=== PATIENT | male | born 1990 | race African-American/Black ===

== ENCOUNTER 2023-09-15 00:34 | Inpatient (IN) | payer OTHER ==
[2023-09-15] MEDS ORDERED: HYDROmorphone HCl 2 MG/ML VIAL IVPUSH ONE ×4 (01:14→07:00)
[2023-09-15] MEDS ORDERED: HYDROmorphone HCl 2 MG/ML VIAL ONE ×4 (01:21→15:10)
[2023-09-15 01:44] LABS: EOS % 0.7 % (0-4.5); HEMATOCRIT 20.5 % (35.4-49); HEMOGLOBIN 7.4 GM/dL (11.7-16.9); LYMPH % 22.5 % (8-40); MEAN CELL VOLUME 80.5 fl (80-96); MEAN PLT VOLUME 6.7 fl (7.5-11.1); MONO % 15.3 % (3.8-10.2); NEUT % 60.5 % (42.8-82.8); PLATELET COUNT 589 10^3/uL (134-434); RBC 2.54 M/mm3 (4.00-5.60); RETICULOCYTES 10.95 % (0.5-1.5); WHITE BLOOD COUNT 11.5 K/mm3 (4.0-10.0)
[2023-09-15] MEDS ORDERED: traMADol HCL 50 MG TABLET PO ONE ×2 (01:50→07:47)
[2023-09-15 01:56] LABS: INR 1.26 (0.83-1.09); PROTHROMBIN TIME (PATIENT) 14.6 SEC (9.7-13.0)
[2023-09-15 01:58] LABS: ACTIVATED PTT 30.4 SECONDS (25.2-36.5)
[2023-09-15 02:02] LABS: POTASSIUM 3.8 mmol/L (3.5-5.1)
[2023-09-15 02:04] LABS: BLOOD UREA NITROGEN 13.1 mg/dL (7-18); CALCIUM 8.9 mg/dL (8.5-10.1)
[2023-09-15 02:05] LABS: ALBUMIN 3.6 g/dl (3.4-5.0)
[2023-09-15 02:07] LABS: CREATININE 0.6 mg/dL (0.55-1.3)
[2023-09-15 02:09] LABS: BILIRUBIN,TOTAL 5.3 mg/dL (0.2-1)
[2023-09-15] MEDS ORDERED: traMADol HCL 50 MG TABLET ONE ×3 (02:17→08:38)
[2023-09-15 03:20] LABS: BILIRUBIN,DIRECT 0.4 mg/dL (0.0-0.2)
[2023-09-15] MEDS ORDERED: NALOXONE HCL 0.4 MG/ML VIAL IVPUSH PRN (03:31)
[2023-09-15] MEDS ORDERED: LACTATED RINGERS SOLUTION 1,000 ML/1,000 ML INFUS.BAG IV SCH (04:15)
[2023-09-15] MEDS ORDERED: traMADol HCL 50 MG TABLET PO SCH ×2 (05:00→10:00)
[2023-09-15 05:40] LABS: PH,URINE 6.5 (5.0-8.0); URINE APPEARANCE CLEAR; URINE BILIRUBIN NEGATIVE (NEGATIVE); URINE COLOR YELLOW; URINE GLUCOSE (UA) NEGATIVE (NEGATIVE); URINE KETONE NEGATIVE (NEGATIVE); URINE LEUK ESTERASE NEGATIVE (NEGATIVE); URINE NITRITE NEGATIVE (NEGATIVE); URINE PROTEIN NEGATIVE (NEGATIVE)
[2023-09-15 06:11] LABS: ANISOCYTOSIS 3+; MACROCYTOSIS 0; OVALOCYTE 1+; SICKELED CELLS 2+; TARGET CELLS 1+
[2023-09-15 06:17] LABS: HEMATOCRIT 21.1 % (35.4-49); HEMOGLOBIN 7.5 GM/dL (11.7-16.9); MCH 28.9 pg (25.7-33.7); MCHC 35.7 g/dl (32.0-35.9); PLATELET COUNT 565 10^3/uL (134-434); RBC 2.61 M/mm3 (4.00-5.60); RDW 27.1 % (11.9-15.9); WHITE BLOOD COUNT 11.2 K/mm3 (4.0-10.0)
[2023-09-15] MEDS ORDERED: SODIUM CHLORIDE 1,000 ML IV STA (06:49)
[2023-09-15] MEDS: SODIUM CHLORIDE 1,000 ML IV SCH (06:53)
[2023-09-15] MEDS ORDERED: HYDROmorphone HCl 2 MG/ML VIAL IVPUSH SCH (07:00)
[2023-09-15 07:27] LABS: POTASSIUM 3.6 mmol/L (3.5-5.1)
[2023-09-15 07:29] LABS: CALCIUM 8.8 mg/dL (8.5-10.1)
[2023-09-15 07:30] LABS: ALBUMIN 3.8 g/dl (3.4-5.0); BLOOD UREA NITROGEN 8.7 mg/dL (7-18)
[2023-09-15 07:33] LABS: CREATININE 0.6 mg/dL (0.55-1.3)
[2023-09-15 07:34] LABS: BILIRUBIN,TOTAL 4.8 mg/dL (0.2-1); TOT PROT 8.3 g/dl (6.4-8.2)
[2023-09-15] MEDS ORDERED: FAMOTIDINE 20 MG/50 ML IVPB 20 MG/50 ML MG IVPB ONE (07:35)
[2023-09-15 07:45] LABS: BASO % 0.7 % (0-2.0); EOS % 1.3 % (0-4.5); HEMATOCRIT 21.5 % (35.4-49); HEMOGLOBIN 7.7 GM/dL (11.7-16.9); LYMPH % 39.7 % (8-40); MCH 28.9 pg (25.7-33.7); MCHC 35.7 g/dl (32.0-35.9); MEAN CELL VOLUME 80.9 fl (80-96); MEAN PLT VOLUME 6.9 fl (7.5-11.1); MONO % 11.4 % (3.8-10.2); NEUT % 46.9 % (42.8-82.8); PLATELET COUNT 568 10^3/uL (134-434); RBC 2.66 M/mm3 (4.00-5.60); RDW 26.9 % (11.9-15.9); WHITE BLOOD COUNT 10.5 K/mm3 (4.0-10.0)
[2023-09-15 09:26] LABS: ANISOCYTOSIS 3+; MACROCYTOSIS 0; SICKELED CELLS 2+; TARGET CELLS 2+
[2023-09-15] MEDS: HYDROmorphone HCl 2 MG/ML VIAL IVPUSH PRN ×3 (09:44→21:00)
[2023-09-15] MEDS ORDERED: traMADol HCL 50 MG TABLET PO PRN (12:00)
[2023-09-15] MEDS ORDERED: DOCUSATE NA 100 MG/10 ML UNIT-DOSE CUPS PO PRN (17:01)
[2023-09-15] MEDS: LACTATED RINGERS SOLUTION 1,000 ML/1,000 ML INFUS.BAG IV SCH (20:58)
[2023-09-15] MEDS ORDERED: FLU VACCINE (FLULAVAL) PF 60 MCG/0.5 ML SYRINGE 2023-2024 IM ONE (22:00)
[2023-09-16] MEDS: traMADol HCL 50 MG TABLET PO SCH ×2 (00:09→09:36)
[2023-09-16] MEDS: HYDROmorphone HCl 2 MG/ML VIAL IVPUSH PRN ×4 (03:03→23:35)
[2023-09-16] MEDS: LACTATED RINGERS SOLUTION 1,000 ML/1,000 ML INFUS.BAG IV SCH ×2 (05:00→20:08)
[2023-09-16 07:13] LABS: HEMATOCRIT 20.9 % (35.4-49); HEMOGLOBIN 7.7 GM/dL (11.7-16.9); MCH 29.8 pg (25.7-33.7); MCHC 36.6 g/dl (32.0-35.9); MEAN CELL VOLUME 81.4 fl (80-96); MEAN PLT VOLUME 6.7 fl (7.5-11.1); PLATELET COUNT 531 10^3/uL (134-434); RBC 2.57 M/mm3 (4.00-5.60); RDW 28.2 % (11.9-15.9); WHITE BLOOD COUNT 11.6 K/mm3 (4.0-10.0)
[2023-09-16] MEDS: SODIUM CHLORIDE 1,000 ML IV SCH (07:28)
[2023-09-16 07:32] LABS: POTASSIUM 3.9 mmol/L (3.5-5.1)
[2023-09-16 07:34] LABS: CALCIUM 9.1 mg/dL (8.5-10.1); MAGNESIUM 1.8 mg/dL (1.8-2.4)
[2023-09-16 07:37] LABS: CREATININE 0.5 mg/dL (0.55-1.3); PHOSPHOROUS 3.8 mg/dL (2.5-4.9)
[2023-09-16 07:39] LABS: BILIRUBIN,TOTAL 3.8 mg/dL (0.2-1)
[2023-09-16] MEDS ORDERED: HYDROmorphone HCl 2 MG/ML VIAL IVPUSH PRN ×2 (08:13→09:07)
[2023-09-16 09:15] LABS: ANISOCYTOSIS 3+; MACROCYTOSIS 0; SICKELED CELLS 2+
[2023-09-16 16:01] LABS: METHADONE, UR NEGATIVE (NEGATIVE); PHENCYCLIDINE,URINE NEGATIVE (NEGATIVE); URINE BENZODIAZEPINES NEGATIVE (NEGATIVE)
[2023-09-16 16:29] LABS: COCAINE, UR NEGATIVE (NEGATIVE); OPIATES, URI POSITIVE (NEGATIVE); URINE AMPHETAMINES NEGATIVE (NEGATIVE); URINE BARBITURATES NEGATIVE (NEGATIVE)
[2023-09-16] MEDS: FOLIC ACID 1 MG TABLET (FP) PO SCH (20:13)
[2023-09-16] MEDS: HEPARIN NA (PORCINE) 5,000 UNITS/ML 1ML VIAL SQ SCH (22:13)
[2023-09-16] MEDS: MELATONIN 5 MG TABLETS PO SCH (23:36)
[2023-09-17] MEDS: HYDROmorphone HCl 2 MG/ML VIAL IVPUSH PRN ×3 (02:53→13:02)
[2023-09-17 07:11] LABS: HEMATOCRIT 19.7 % (35.4-49); HEMOGLOBIN 7.1 GM/dL (11.7-16.9); MCH 29.4 pg (25.7-33.7); MEAN CELL VOLUME 81.7 fl (80-96); MEAN PLT VOLUME 6.8 fl (7.5-11.1); PLATELET COUNT 467 10^3/uL (134-434); RBC 2.41 M/mm3 (4.00-5.60); RDW 27.2 % (11.9-15.9); WHITE BLOOD COUNT 9.7 K/mm3 (4.0-10.0)
[2023-09-17 07:31] LABS: POTASSIUM 3.9 mmol/L (3.5-5.1)
[2023-09-17 07:49] LABS: CALCIUM 9.3 mg/dL (8.5-10.1)
[2023-09-17 07:50] LABS: ALBUMIN 3.5 g/dl (3.4-5.0); BLOOD UREA NITROGEN 6.6 mg/dL (7-18)
[2023-09-17 07:53] LABS: CREATININE 0.4 mg/dL (0.55-1.3); PHOSPHOROUS 3.9 mg/dL (2.5-4.9)
[2023-09-17 07:54] LABS: TOT PROT 7.9 g/dl (6.4-8.2)
[2023-09-17 07:55] LABS: BILIRUBIN,TOTAL 4.1 mg/dL (0.2-1)
[2023-09-17] MEDS: FOLIC ACID 1 MG TABLET (FP) PO SCH (09:35)
[2023-09-17] MEDS: HEPARIN NA (PORCINE) 5,000 UNITS/ML 1ML VIAL SQ SCH ×2 (09:36→22:10)
[2023-09-17] MEDS ORDERED: LACTATED RINGERS SOLUTION 1,000 ML/1,000 ML INFUS.BAG IV SCH (11:22)
[2023-09-17] MEDS ORDERED: HYDROmorphone HCl 2 MG/ML VIAL IVPUSH PRN (14:37)
[2023-09-17] MEDS ORDERED: DOCUSATE NA 100 MG/10 ML UNIT-DOSE CUPS PO PRN (14:37)
[2023-09-17] MEDS ORDERED: NALOXONE HCL 0.4 MG/ML VIAL IVPUSH PRN (14:37)
[2023-09-17] MEDS: SODIUM CHLORIDE 1,000 ML IV SCH (19:46)
[2023-09-17] MEDS ORDERED: HYDROmorphone HCl 2 MG/ML VIAL IVPB PRN (19:59)
[2023-09-17] MEDS ORDERED: HYDROmorphone HCl 2 MG/ML VIAL IVPB ONE (20:19)
[2023-09-17] MEDS: MELATONIN 5 MG TABLETS PO SCH (22:08)
[2023-09-17] MEDS: diphenhydrAMINE HCL 25 MG CAPSULE (FP) PO PRN (23:03)
[2023-09-18] MEDS: HYDROmorphone HCl 2 MG/ML VIAL IVPB PRN ×6 (03:07→21:47)
[2023-09-18] MEDS: diphenhydrAMINE HCL 25 MG CAPSULE (FP) PO PRN (04:13)
[2023-09-18] MEDS ORDERED: diphenhydrAMINE HCL 25 MG CAPSULE (FP) PO PRN (06:00)
[2023-09-18 09:15] LABS: BASO % 0.6 % (0-2.0); EOS % 2.8 % (0-4.5); HEMATOCRIT 24.7 % (35.4-49); HEMOGLOBIN 8.8 GM/dL (11.7-16.9); LYMPH % 22.9 % (8-40); MCHC 35.8 g/dl (32.0-35.9); MEAN CELL VOLUME 80.9 fl (80-96); MEAN PLT VOLUME 6.8 fl (7.5-11.1); MONO % 11.9 % (3.8-10.2); NEUT % 61.8 % (42.8-82.8); PLATELET COUNT 546 10^3/uL (134-434); RBC 3.05 M/mm3 (4.00-5.60); RDW 24.5 % (11.9-15.9); WHITE BLOOD COUNT 8.3 K/mm3 (4.0-10.0)
[2023-09-18 09:28] LABS: POTASSIUM 3.8 mmol/L (3.5-5.1)
[2023-09-18 09:31] LABS: CALCIUM 9.2 mg/dL (8.5-10.1)
[2023-09-18 09:32] LABS: ALBUMIN 3.6 g/dl (3.4-5.0); BLOOD UREA NITROGEN 6.9 mg/dL (7-18); MAGNESIUM 1.9 mg/dL (1.8-2.4)
[2023-09-18 09:35] LABS: CREATININE 0.5 mg/dL (0.55-1.3); PHOSPHOROUS 4.1 mg/dL (2.5-4.9)
[2023-09-18 09:36] LABS: BILIRUBIN,TOTAL 4.9 mg/dL (0.2-1); TOT PROT 8.2 g/dl (6.4-8.2)
[2023-09-18 09:50] LABS: ANISOCYTOSIS 3+; MACROCYTOSIS 0; SICKELED CELLS 2+
[2023-09-18] MEDS: traMADol HCL 50 MG TABLET PO SCH ×2 (10:01→21:47)
[2023-09-18] MEDS: FOLIC ACID 1 MG TABLET (FP) PO SCH (10:01)
[2023-09-18] MEDS: SODIUM CHLORIDE 1,000 ML IV SCH (10:04)
[2023-09-18] MEDS ORDERED: HYDROmorphone HCl 2 MG/ML VIAL IVPUSH ONE (11:37)
[2023-09-18] MEDS: MELATONIN 5 MG TABLETS PO SCH (21:47)
[2023-09-19] MEDS: HYDROmorphone HCl 2 MG/ML VIAL IVPB PRN ×6 (01:24→20:04)
[2023-09-19 09:18] LABS: BASO % 0.7 % (0-2.0); EOS % 2.3 % (0-4.5); HEMATOCRIT 25.2 % (35.4-49); LYMPH % 19.4 % (8-40); MCH 29.4 pg (25.7-33.7); MCHC 35.7 g/dl (32.0-35.9); MEAN CELL VOLUME 82.4 fl (80-96); MONO % 13.8 % (3.8-10.2); NEUT % 63.8 % (42.8-82.8); PLATELET COUNT 513 10^3/uL (134-434); RBC 3.06 M/mm3 (4.00-5.60); RDW 22.9 % (11.9-15.9); WHITE BLOOD COUNT 9.8 K/mm3 (4.0-10.0)
[2023-09-19] MEDS: FOLIC ACID 1 MG TABLET (FP) PO SCH (09:21)
[2023-09-19] MEDS: traMADol HCL 50 MG TABLET PO SCH ×2 (09:22→21:17)
[2023-09-19 09:27] LABS: POTASSIUM 3.8 mmol/L (3.5-5.1)
[2023-09-19 09:29] LABS: ALBUMIN 3.5 g/dl (3.4-5.0); BLOOD UREA NITROGEN 7.2 mg/dL (7-18); CALCIUM 9.1 mg/dL (8.5-10.1)
[2023-09-19 09:33] LABS: CREATININE 0.5 mg/dL (0.55-1.3)
[2023-09-19 09:34] LABS: BILIRUBIN,TOTAL 5.3 mg/dL (0.2-1); TOT PROT 8.1 g/dl (6.4-8.2)
[2023-09-19] MEDS: HEPARIN NA (PORCINE) 5,000 UNITS/ML 1ML VIAL SQ SCH ×2 (14:25→21:21)
[2023-09-19] MEDS: MELATONIN 5 MG TABLETS PO SCH (21:17)
[2023-09-20] MEDS: HYDROmorphone HCl 2 MG/ML VIAL IVPB PRN ×8 (00:17→23:54)
[2023-09-20] MEDS: HEPARIN NA (PORCINE) 5,000 UNITS/ML 1ML VIAL SQ SCH ×4 (06:16→22:20)
[2023-09-20] MEDS: traMADol HCL 50 MG TABLET PO SCH ×2 (09:20→22:20)
[2023-09-20] MEDS: FOLIC ACID 1 MG TABLET (FP) PO SCH (09:20)
[2023-09-20 10:20] LABS: BASO % 0.8 % (0-2.0); EOS % 3.4 % (0-4.5); HEMATOCRIT 22.7 % (35.4-49); HEMOGLOBIN 8.3 GM/dL (11.7-16.9); LYMPH % 22.2 % (8-40); MCH 29.6 pg (25.7-33.7); MCHC 36.4 g/dl (32.0-35.9); MEAN CELL VOLUME 81.5 fl (80-96); MEAN PLT VOLUME 6.8 fl (7.5-11.1); MONO % 16.1 % (3.8-10.2); NEUT % 57.5 % (42.8-82.8); PLATELET COUNT 481 10^3/uL (134-434); RBC 2.79 M/mm3 (4.00-5.60); RDW 22.5 % (11.9-15.9); WHITE BLOOD COUNT 8.5 K/mm3 (4.0-10.0)
[2023-09-20 10:42] LABS: POTASSIUM 3.6 mmol/L (3.5-5.1)
[2023-09-20 10:53] LABS: ALBUMIN 3.6 g/dl (3.4-5.0); BLOOD UREA NITROGEN 7.1 mg/dL (7-18); CALCIUM 9.3 mg/dL (8.5-10.1)
[2023-09-20 10:55] LABS: CREATININE 0.4 mg/dL (0.55-1.3)
[2023-09-20 10:58] LABS: BILIRUBIN,TOTAL 4.6 mg/dL (0.2-1); TOT PROT 7.9 g/dl (6.4-8.2)
[2023-09-20] MEDS: SODIUM CHLORIDE 1,000 ML IV SCH (14:26)
[2023-09-20] MEDS: MELATONIN 5 MG TABLETS PO SCH (22:20)
[2023-09-21] MEDS: SODIUM CHLORIDE 1,000 ML IV SCH ×2 (01:30→14:45)
[2023-09-21] MEDS: HYDROmorphone HCl 2 MG/ML VIAL IVPB PRN ×3 (02:56→09:30)
[2023-09-21] MEDS: HEPARIN NA (PORCINE) 5,000 UNITS/ML 1ML VIAL SQ SCH ×3 (06:21→21:07)
[2023-09-21] MEDS: FOLIC ACID 1 MG TABLET (FP) PO SCH (09:29)
[2023-09-21] MEDS: traMADol HCL 50 MG TABLET PO SCH ×2 (09:29→21:25)
[2023-09-21 10:37] LABS: HEMATOCRIT 23.2 % (35.4-49); HEMOGLOBIN 8.5 GM/dL (11.7-16.9); MCHC 36.8 g/dl (32.0-35.9); MEAN CELL VOLUME 81.5 fl (80-96); MEAN PLT VOLUME 7.3 fl (7.5-11.1); PLATELET COUNT 452 10^3/uL (134-434); RBC 2.85 M/mm3 (4.00-5.60); RDW 22.8 % (11.9-15.9); WHITE BLOOD COUNT 8.5 K/mm3 (4.0-10.0)
[2023-09-21] MEDS ORDERED: HYDROmorphone HCl 2 MG/ML VIAL IVPB PRN ×2 (11:23→13:36)
[2023-09-21] MEDS: diphenhydrAMINE HCL 25 MG CAPSULE (FP) PO PRN (14:12)
[2023-09-21] MEDS ORDERED: HYDROmorphone HCL 2 MG TABLET PO PRN (15:30)
[2023-09-21 17:06] LABS: HGB SOLUBILITY Positive (Negative)
[2023-09-21] MEDS: MELATONIN 5 MG TABLETS PO SCH (21:25)
[2023-09-22] MEDS: SODIUM CHLORIDE 1,000 ML IV SCH ×2 (01:11→15:43)
[2023-09-22] MEDS: HEPARIN NA (PORCINE) 5,000 UNITS/ML 1ML VIAL SQ SCH ×3 (07:34→21:27)
[2023-09-22] MEDS: traMADol HCL 50 MG TABLET PO SCH ×2 (09:26→21:27)
[2023-09-22] MEDS: FOLIC ACID 1 MG TABLET (FP) PO SCH (09:27)
[2023-09-22 10:33] LABS: POTASSIUM 4.4 mmol/L (3.5-5.1)
[2023-09-22 10:40] LABS: CALCIUM 9.6 mg/dL (8.5-10.1); HEMATOCRIT 23.8 % (35.4-49); HEMOGLOBIN 8.8 GM/dL (11.7-16.9); MCH 29.8 pg (25.7-33.7); MCHC 36.8 g/dl (32.0-35.9); MEAN CELL VOLUME 80.9 fl (80-96); MEAN PLT VOLUME 7.3 fl (7.5-11.1); PLATELET COUNT 489 10^3/uL (134-434); RBC 2.94 M/mm3 (4.00-5.60); RDW 22.9 % (11.9-15.9); WHITE BLOOD COUNT 11.2 K/mm3 (4.0-10.0)
[2023-09-22 10:41] LABS: ALBUMIN 3.8 g/dl (3.4-5.0)
[2023-09-22 10:44] LABS: BILIRUBIN,DIRECT 0.6 mg/dL (0.0-0.2); CREATININE 0.5 mg/dL (0.55-1.3); TOT PROT 8.9 g/dl (6.4-8.2)
[2023-09-22 10:45] LABS: BILIRUBIN,TOTAL 5.6 mg/dL (0.2-1)
[2023-09-22 12:53] LABS: RETICULOCYTES 2.72 % (0.5-1.5)
[2023-09-22] MEDS: diphenhydrAMINE HCL 25 MG CAPSULE (FP) PO PRN (20:29)
[2023-09-22] MEDS: MELATONIN 5 MG TABLETS PO SCH (21:26)
[2023-09-23] MEDS: HYDROmorphone HCL 2 MG TABLET PO PRN ×2 (01:23→06:35)
[2023-09-23] MEDS: HEPARIN NA (PORCINE) 5,000 UNITS/ML 1ML VIAL SQ SCH ×4 (06:12→22:36)
[2023-09-23] MEDS: traMADol HCL 50 MG TABLET PO SCH (09:14)
[2023-09-23] MEDS: FOLIC ACID 1 MG TABLET (FP) PO SCH (09:15)
[2023-09-23 10:51] LABS: BASO % 0.7 % (0-2.0); EOS % 1.2 % (0-4.5); HEMATOCRIT 25.5 % (35.4-49); HEMOGLOBIN 9.3 GM/dL (11.7-16.9); MCH 29.7 pg (25.7-33.7); MCHC 36.3 g/dl (32.0-35.9); MEAN PLT VOLUME 7.1 fl (7.5-11.1); MONO % 11.8 % (3.8-10.2); NEUT % 66.3 % (42.8-82.8); PLATELET COUNT 573 10^3/uL (134-434); RBC 3.11 M/mm3 (4.00-5.60); RDW 23.5 % (11.9-15.9); RETICULOCYTES 3.59 % (0.5-1.5); WHITE BLOOD COUNT 10.7 K/mm3 (4.0-10.0)
[2023-09-23 11:08] LABS: POTASSIUM 4.3 mmol/L (3.5-5.1)
[2023-09-23 11:12] LABS: ALBUMIN 4.2 g/dl (3.4-5.0); CALCIUM 9.5 mg/dL (8.5-10.1)
[2023-09-23 11:16] LABS: CREATININE 0.6 mg/dL (0.55-1.3)
[2023-09-23 11:17] LABS: BILIRUBIN,TOTAL 5.8 mg/dL (0.2-1); TOT PROT 9.6 g/dl (6.4-8.2)
[2023-09-23 11:22] LABS: ANISOCYTOSIS 2+; MACROCYTOSIS 0; SICKELED CELLS 2+; TARGET CELLS 1+
[2023-09-23] MEDS ORDERED: traMADol HCL 50 MG TABLET PO SCH ×2 (12:00→17:00)
[2023-09-23] MEDS: SODIUM CHLORIDE 1,000 ML IV SCH (13:16)
[2023-09-23 14:29] VITALS: RESP 18
[2023-09-23] MEDS: MELATONIN 5 MG TABLETS PO SCH (22:32)
[2023-09-24] MEDS ORDERED: traMADol HCL 50 MG TABLET PO ONE ×2 (00:38→01:15)
[2023-09-24] MEDS: SODIUM CHLORIDE 1,000 ML IV SCH (01:35)
[2023-09-24] MEDS: HEPARIN NA (PORCINE) 5,000 UNITS/ML 1ML VIAL SQ SCH (06:44)
[2023-09-24] MEDS: traMADol HCL 50 MG TABLET PO SCH (07:56)
[2023-09-24] MEDS: FOLIC ACID 1 MG TABLET (FP) PO SCH (09:44)
[2023-09-24 10:16] LABS: EOS % 1.1 % (0-4.5); HEMATOCRIT 25.3 % (35.4-49); HEMOGLOBIN 9.1 GM/dL (11.7-16.9); LYMPH % 22.4 % (8-40); MCH 29.8 pg (25.7-33.7); MEAN CELL VOLUME 82.6 fl (80-96); MEAN PLT VOLUME 7.3 fl (7.5-11.1); MONO % 8.8 % (3.8-10.2); NEUT % 66.7 % (42.8-82.8); PLATELET COUNT 528 10^3/uL (134-434); RBC 3.06 M/mm3 (4.00-5.60); WHITE BLOOD COUNT 9.1 K/mm3 (4.0-10.0)
[2023-09-24 10:34] VITALS: BP 135/63; PULSE 88; TEMP 98.1
[2023-09-24 10:41] LABS: POTASSIUM 4.2 mmol/L (3.5-5.1)
[2023-09-24 10:43] LABS: CALCIUM 9.5 mg/dL (8.5-10.1)
[2023-09-24 10:44] LABS: ALBUMIN 4.1 g/dl (3.4-5.0); BLOOD UREA NITROGEN 6.8 mg/dL (7-18)
[2023-09-24 10:47] LABS: CREATININE 0.6 mg/dL (0.55-1.3)
[2023-09-24 10:48] LABS: BILIRUBIN,TOTAL 5.3 mg/dL (0.2-1)
[2023-09-24 10:49] LABS: TOT PROT 9.5 g/dl (6.4-8.2)
[2023-09-24 20:30] VITALS: BMI 19.8
== END 2023-09-24 10:15 | disposition home or self-care (01) | DRG 662 ==
LOC: JER 00:34 → JERBED 02:51 → OBSVTOIN 04:11 → J4W 16:12 → J6S 09-17 14:58
PROVIDERS: ADMIT Internal Medicine; ATTEND Internal Medicine
DX: D57.00 Hb-SS disease with crisis, unspecified (principal); F11.20 Opioid dependence, uncomplicated; J98.11 Atelectasis; K92.1 Melena; L29.9 Pruritus, unspecified; R17 Unspecified jaundice
CPT/HCPCS: 0241U-QW; 36415; 36430; 71045-TC-FY; 71275-TC; 80048; 80053; 80307; 81003; 82247; 82248; 82550; 83021; 83605; 83615; 83735; 84100; 84443; 84484; 85025; 85027; 85045; 85379; 85610; 85660; 85730; 86850; 86900; 86901; 86922; 87086; 93005; 93010; 93880-TC; 94010; 99285-25; G0378; J1644; P9058; Q9967